=== PATIENT | female | born 1960 | race Caucasian/White ===

== ENCOUNTER 2018-05-07 09:34 | Outpatient (CLI) | payer BC | END 2018-05-07 09:35 | disposition home or self-care (01) | LOC: C.CARD 09:34 ==

== ENCOUNTER 2018-05-21 08:50 | Outpatient (CLI) | payer BC | END 2018-05-21 08:51 | disposition home or self-care (01) | LOC: C.CARD 08:50 | DX: R07.9 Chest pain, unspecified (principal) ==